=== PATIENT | female | born 2005 | race Asian ===

== ENCOUNTER 2025-03-25 23:57 | Emergency (ER) | payer MEDICAID ==
[~2025-03-25] VITALS: Ht 149.9 cm; Wt 48.0 kg
[2025-03-26 00:03] VITALS: O2SAT 96
[2025-03-26 00:39] LABS: BASOPHILS % 1.4 % (0.0-2.0); EOSINOPHILS % 3.2 % (0.0-5.0); HEMATOCRIT. 36.4 % (36.0-48.0); HEMOGLOBIN. 12.1 g/dL (12.0-16.0); LYMPHOCYTES % 45.9 % (20.0-50.0); MEAN PLATELET VOLUME 7.9 fl (7.4-10.4); MONOCYTES % 11.1 % (2.0-8.0); NEUTROPHILS % 38.4 % (40.0-76.0); PLATELET 335 x1000/uL (130-400); RED BLOOD CELL COUNT 3.96 mill/uL (4.2-5.4); RED CELL DISTRIBUTION WIDTH 13.2 % (11.6-14.6)
[2025-03-26 00:42] LABS: CREATININE 0.7 mg/dL (0.6-1.0); UREA NITROGEN BLOOD 17 mg/dL (9-23)
[2025-03-26 01:18] LABS: ASPARTATE AMINOTRANSFERASE 19 IU/L (<34); BILIRUBIN DIRECT 0.1 mg/dL (<=3.0); HCG SCREEN NEGATIVE
[2025-03-26 01:19] LABS: BILIRUBIN TOTAL 0.5 mg/dL (0.1-1.0); PROTEIN TOTAL 7.0 g/dL (6.0-8.3)
[2025-03-26 01:52] LABS: CLARITY URINE CLEAR (CLEAR); COLOR URINE YELLOW (YELLOW); GLUCOSE URINE NEGATIVE (NEGATIVE); KETONES URINE NEGATIVE (NEGATIVE); NITRITE URINE NEGATIVE (NEGATIVE); OCCULT BLOOD URINE NEGATIVE (NEGATIVE); PH URINE 7.5 (4.5-8.0); PROTEIN URINE NEGATIVE (NEGATIVE); SPECIFIC GRAVITY URINE 1.007 (1.005-1.030)
[2025-03-26 01:53] LABS: LEUKOCYTE ESTERASE URINE NEGATIVE (NEGATIVE); UROBILINOGEN URINE 0.2 E.U./dL (0.2-1.0)
[2025-03-26] MEDS: DICYCLOMINE HCL 10MG CAPSULE PO ONE (02:16)
[2025-03-26] MEDS: ACETAMINOPHEN 325MG TABLET PO ONE (02:16)
[2025-03-26] MEDS ORDERED: NAPR-1176 MT (04:24)
[2025-03-26 04:35] VITALS: BP 103/69; PULSE 70; RESP 18; TEMP 37; O2SAT 100
== END 2025-03-26 04:38 | disposition home or self-care (01) ==
LOC: ER 03-26 00:24
DX: N83.8 Other noninflammatory disorders of ovary, fallopian tube and broad ligament (principal)
CPT/HCPCS: 36415; 76700; 76830; 76856; 80048; 80076; 81003; 81025; 84703; 85025; 99284